=== PATIENT | female | born 1975 | race Caucasian/White ===

== ENCOUNTER 2016-07-23 14:41 | Emergency (ER) | payer OTHER ==
[2016-07-23] MEDS ORDERED: Pantoprazole 40 MG VIAL ONE (15:09)
[2016-07-23] MEDS ORDERED: Sodium Chloride 0.9% 1,000 ML ONE (15:09)
--- NOTE | 2016-07-23 15:18 | RAD ---
PORTABLE AP CHEST: Date: 07-23-16 History: Chest pain. Comparison: 04-11-15 FINDINGS: Cardiac silhouette and pulmonary vasculature are within normal limits. The lungs remain clear. The re has been no interval change from the prior exam. IMPRESSION: No acute cardiopulmonary process. POS: [facility]
[2016-07-23 15:40] LABS: #Basophils 0.1 thou/uL (0.0-0.2); #Eosinphils 0.3 thou/uL (0.0-0.7); #Lymphocytes 3.1 thou/uL (1.20-3.40); #Monocytes 0.8 thou/uL (0.11-0.59); #Neutrophils 8.4 thou/uL (1.40-6.50); %Basophils 1.1 % (0.0-1.0); %Eosinophils 2.3 % (0.0-10.0); %Lymphocytes 24.3 % (21.0-51.0); %Monocytes 6.5 % (0.0-10.0); Hematocrit 38.5 % (36.0-47.0); Red Blood Cell (RBC) Count 4.15 mill/uL (4.20-5.40); White Blood Cell (WBC) Count 12.7 thou/uL (4.8-10.8)
[2016-07-23 15:42] LABS: Bilirubin Negative (Negative); Blood, Urine Negative (Negative); Glucose, Urine (Dipstick) Negative (Negative); Ketone, Urine Negative (Negative); Nitrite Negative (Negative); Protein, Urine (Dipstick) Negative (Neg-Trace); Urobilinogen 0.2 mg/dL (0.2-1.0)
[2016-07-23 15:56] LABS: Troponin I Less than 0.010 ng/mL (< 0.028)
[2016-07-23 15:57] LABS: ALT (SGPT) 70 U/L (0-55); AST (SGOT) 149 U/L (5-34); Alkaline Phosphatase 125 U/L (40-150); Anion Gap 12 mmol/L (10-20); BUN (Urea Nitrogen) 11 mg/dL (7.0-18.7); Bilirubin, Total 0.5 mg/dL (0.2-1.2); Calc. Creatinine Clearance 0 mL/min (70-130); Calcium 8.8 mg/dL (7.8-10.44); Carbon Dioxide 26 mmol/L (22-29); Chloride 106 mmol/L (98-107); Estimated GFR-MDRD 79; Globulin 2.9 g/dL (2.4-3.5); Lipase 23 U/L (8-78); Magnesium 2.1 mg/dL (1.6-2.6); Protein, Total 6.7 g/dL (6.0-8.3)
[2016-07-23] MEDS ORDERED: Lidocaine Viscous Sol 2% 15 ml UD Cup ONE (17:08)
[2016-07-23] MEDS ORDERED: Mag-Al Plus 1200 MG/1200 MG/120 MG/30 ML UDCUP ONE (17:08)
[2016-07-23] MEDS ORDERED: Ondansetron HCl/PF 4 MG/2 ML Vial ONE (17:08)
[2016-07-23 17:33] LABS: Troponin I Less than 0.010 ng/mL (< 0.028)
[2016-07-23] MEDS ORDERED: Nitroglycerin 0.4 MG TAB (25 Tab Bottle) ONE (17:39)
[2016-07-23] MEDS ORDERED: HYDROcodone/Acetaminophen 10/325 mg Tablet ONE (18:32)
--- NOTE | 2016-07-23 18:52 | ERRECORD ---
[facility] EMERGENCY RECORD HPI CHEST PAIN (15:06 AGRE) CHIEF COMPLAINT: Patient presents for evaluation of chest pain, ongoing. HISTORIAN: History provided by patient, PAINS IN THE UPPER ABDOMEN AND LOWER CHEST ONSET ABOUT 1 HR AGO. THE PAINS COME AND GO AND FEEL LIKE A SQUEEZING THAT WILL LAST FOR 2 - 3 MINUTES AND RESOLVE. HAS BEEN HAVING THIS PROBLEM SINCE HER CHOLECYSTECTOMY LAST MAR 2016. GETS THESE PAINS FREQUENTLY SINCE THEN BUT THIS IS ONLY THE SECOND SEVERE EPISODE OF IT. IT SOMETIMES RADIATES TO HER BACK AND RIGHT SHOULDER. NO COUGHING, SOB, FEVER, CHILLS, OR VOMITING. HAS ASSOCIATED NAUSEA. 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 HAS BEEN TOLD BY HER PCP THAT IT IS ESOPHAGEAL SPASMS. GETS CRAMPS IN HER LEGS FROM TIME TO TIME WELL.. HAS CONTINUED TO HAVE DISCOMFORT IN RUQ SINCE REMOVAL OF THE GALLBLADDER. LOCATION: Symptoms are localized, most severe in epigastric area, Pain radiates, to the back, Radiation to the shoulder. QUALITY: Pain is dull in nature, described as cramping. SEVERITY: Maximum severity of symptoms severe, Currently there are no symptoms. TIME COURSE: Gradual onset of symptoms, Symptoms have resolved. ASSOCIATED WITH: No associated palpitations, No associated shortness of breath, No associated trauma, No associated upper respiratory infection, Denies any other complaints. EXACERBATED BY: Patient's condition exacerbated by nothing. RELIEVED BY: Patient's condition relieved by nothing. RISK FACTORS: Coronary artery disease risk factors, no known coronary artery disease, no diabetes, no high cholesterol, no hypertension, include smoking. WELLS CRITERIA FOR PE: No clinical signs and symptoms of a DVT (0), Patient does not have, or is likely to not have, a primary diagnosis of PE (0), Patient's heart rate is less than 100 (0), Patient has no history of immobilization within 3 days, nor any surgical history within the past 4 weeks (0), Patient has not had an objectively diagnosed PE or DVT previously (0), Patient does not have hemoptysis (0), Patient has not had treatment for malignancy within the last 6 months, nor palliative (0). ROS (15:12 AGRE) CONSTITUTIONAL: Historian denies chills, denies fever, denies weakness. EYES: Historian denies eye redness, denies vision changes. ENT: Historian denies sore throat, denies stridor. CARDIOVASCULAR: Historian reports chest pain, substernal, in the epigastric area, Historian denies diaphoresis. RESPIRATORY: Historian denies cough, denies shortness of breath. GI: Historian reports abdominal pain, reports &a-1R&a+25V*p+0X*i0081H*c202B*c15G*c2P*p-0X&a-25V&a+1R Name: Madhavi Willams : 1975 F41 MedRec: [id number] AcctNum: [id number] Prepared: FriJul 23, 2016 18:49 by Interface Page 1 of 4 pMD [facility] EMERGENCY RECORD nausea, denies vomiting. MUSCULOSKELETAL: Historian denies back pain, denies neck pain. SKIN: Historian denies skin changes, denies skin lesions. NEUROLOGIC: Historian denies confusion, denies dizziness, denies focal weakness, denies headache. HEMO/LYMPHATIC: Normal hematologic/lymphatic system review, Historian denies petechiae. PSYCHIATRIC: Negative psychiatric review of systems, Historian denies anxiety. PAST MEDICAL HISTORY (14:57 EPIE) MEDICAL HISTORY: Flu vaccine up to date, Tetanus immunization up to date, Past medical history includes genitourinary history, urinary tract infection, Past medical history includes neurological disease, migraine headaches. GERD. IBS. FEMALE SURGICAL HISTORY: Surgical history of cholecystectomy, laparoscopic, Surgical history of gastric bypass, Date of surgery 05/19, Surgical history of hysterectomy, Date of surgery 08/2009. PSYCHIATRIC HISTORY: Psychiatric history includes, depression, no previous inpatient psychiatric admissions, no previous emergency department psychiatric evaluations, Psychiatric history includes patient currently being under outpatient treatment. Psychiatric history includes, anxiety, Notes: ADD,. SOCIAL HISTORY: Patient is a former tobacco user, smoked cigarettes, Patient quit smoking less than 10 years ago, Tobacco history notes: Currently uses e-cigarette, Patient denies alcohol use, Patient denies drug use. KNOWN ALLERGIES morphine CURRENT MEDICATIONS No recorded medications VITAL SIGNS VITAL SIGNS: BP: 120/89, Pulse: 86, Resp: 20, O2 sat: 98 on Room Air, Time: 07/23/2016 14:52. (14:52 EPIE) BP: 115/78, Pulse: 90, Resp: 20 (Non-Labored), Temp: 98.7 (Oral), Pain: 5, O2 sat: 100 on Room Air, Time: 07/23/2016 15:30. (15:30 EPIE) BP: 111/68, Pulse: 92, Resp: 20 (Non-Labored), O2 sat: 100 on Room Air, Time: 07/23/2016 16:30. (16:30 EPIE) BP: 118/68, Pulse: 95, Resp: 22, Pain: 8, O2 sat: 100 on Room Air, Time: 07/23/2016 17:30. (17:30 EPIE) BP: 116/75, Pulse: 94, Resp: 22, O2 sat: 100 on Room Air, Time: 07/23/2016 17:40. (17:40 EPIE) BP: 90/58, Pulse: 93, Resp: 22, O2 sat: 100 on Room Air, Time: 07/23/2016 18:00. (18:00 EPIE) BP: 102/65, Pulse: 96, Resp: 20, O2 sat: 95 on Room Air, Time: 07/23/2016 18:30. (18:30 EPIE) &a-1R&a+25V*p+0X*q1170S*c202B*c15G*c2P*p-0X&a-25V&a+1R Name: Madhavi Willams : 1975 F41 MedRec: [id number] AcctNum: [id number] Prepared: FriJul 23, 2016 18:49 by Interface Page 2 of 4 pMD [facility] EMERGENCY RECORD Temp: 98.6 (Oral), Time: 07/23/2016 18:46. (18:46 EPIE) PHYSICAL EXAM (15:13 AGRE) CONSTITUTIONAL: Vital Signs Reviewed, Patient afebrile, Patient appears non toxic, Patient appears pain free, Patient alert and oriented to person, place and time, Nursing notes reviewed. HEAD: Head exam included findings of head atraumatic, normocephalic. EYES: Eye exam included findings of eyelids normal to inspection, Extraocular muscles intact, Conjunctiva normal, Sclera normal. ENT: Ear exam normal, Nose exam normal, Mouth exam normal. NECK: Neck exam normal, Neck exam included findings of normal range of motion, no meningeal signs. RESPIRATORY CHEST: Respiratory and chest exam normal, Respiratory exam included findings of no respiratory distress, Breath sounds clear, No wheezing, No rales, No rhonchi, Breath sounds not diminished. CARDIOVASCULAR: Cardiovascular assessment normal, Cardiovascular exam included findings of heart rate regular rate and rhythm, Heart sounds normal, normal S1, normal S2, no murmurs, no rub, no gallop. ABDOMEN FEMALE: Abdominal exam included findings of abdomen tender, to the epigastric region, to the right upper quadrant, Bowel sounds normal, Liver normal, Spleen normal, no distension, no mass, no pulsatile masses, no peritoneal signs, no rigidity, no guarding, no rebound, no ventral hernia. BACK: Back exam included findings of normal inspection, range of motion normal. UPPER EXTREMITY: Upper extremity exam included findings of inspection normal, Range of motion normal. LOWER EXTREMITY: Lower extremity exam included findings of inspection normal, Range of motion normal. NEURO: Neuro exam normal, Neuro exam findings include patient oriented to person, place and time, Speech normal, Memory normal, Cranial nerves intact, no focal motor deficits. SKIN: Skin exam included findings of skin warm, dry, and normal in color. PSYCHIATRIC: Psychiatric exam normal, Normal affect. EKG INTERPRETATION (15:04 AGRE) 12 LEAD EKG INTERPRETATION: 12 lead EKG interpreted by Emergency Department Physician at time of study, 12 lead EKG shows normal sinus rhythm, Rate (beats per minute): 85, with no ectopics, Conduction normal, ST segments normal, T waves normal, [place] normal, Clinical impression: Normal EKG. MEDICATION ADMINISTRATION SUMMARY Drug Name: ondansetron, Dose Ordered: 4 mg, Route: Sublingual, Status: Canceled, Time: 17:17 07/23/2016, Drug Name: Hermon, Dose Ordered: 10 mg, Route: Oral, Status: Given, &a-1R&a+25V*p+0X*[id number]*c202B*c15G*c2P*p-0X&a-25V&a+1R Name: Madhavi Willams Juan : 1975 F41 MedRec: [id number] AcctNum: [id number] Prepared: Imelda Jul 23, 2016 18:49 by Interface Page 3 of 4 pMD [facility] EMERGENCY RECORD Time: 18:35 07/23/2016, Drug Name: nitroglycerin sublingual, Dose Ordered: 0.4 mg, Route: Sublingual, Status: Given, Time: 17:45 07/23/2016, Drug Name: GI COCKTAIL- GREEN, Dose Ordered: 40 mL, Route: Oral, Status: Given, Time: 17:17 07/23/2016, Drug Name: *Zofran intravenous, Dose Ordered: 4 mg, Route: IV Push, Status: Given, Time: 17:15 07/23/2016, Drug Name: sodium chloride 0.9 % intravenous, Dose Ordered: 1 L, Route: IV Fluid Infusion, Status: Given, Time: 15:20 07/23/2016, Drug Name: Protonix intravenous, Dose Ordered: 40 mg, Route: IV Push, Status: Given, Time: 15:20 07/23/2016, *Additional information available in notes, Detailed record available in Medication Service section. PROBLEM LIST No recorded problems DIAGNOSIS (18:34 AGRE) FINAL: PRIMARY: ESOPHAGEAL SPASM. PRESCRIPTION (18:34 AGRE) acetaminophen-codeine: TABLET : 300 mg-60 mg : ORAL : Quantity: 1 Unit: tab(s) Route: ORAL Schedule: every 6 hours PRN Dispense: 12 Unit: tab(s) May substitute. Refills: No Refills POTENTIAL ALLERGY REACTION: 'morphine [morphine/morphine sulfate]'. NOTES: prn severe pain No Refills. DISPOSITION PATIENT: Disposition Type: Discharge, Disposition: *Discharge Home, Condition: Improved. (18:34 AGRE) Patient left the department. (18:47 EPIE) Dai: AGRE=MD Waylon, Mathew EPIE=[place] RN, Dinora &a-1R&a+25V*p+0X*m4125G*c202B*c15G*c2P*p-0X&a-25V&a+1R Name: Екатерина Madhavi C : 1975 F41 MedRec: [id number] AcctNum: [id number] Prepared: FriJul 23, 2016 18:49 by Interface Page 4 of 4 pMD [facility]
--- NOTE | 2016-07-23 18:58 | PICIS ---
[facility] EMERGENCY RECORD TRIAGE (FriJul 23, 2016 14:49 EPIE) TRIAGE NOTES: Pt reports chest pain starting today along with nausea. Reports she has hx of espophageal spasms. Pt also reports leg cramps. (FriJul 23, 2016 14:49 EPIE) PATIENT: NAME: Madhavi Willams, AGE: 41, GENDER: female, : Sun 1975, TIME OF GREET: FriJul 23, 2016 14:41, PREFERRED LANGUAGE: Ghanaian, ETHNICITY: Not or , ECODE BILLING MAP: [facility], SSN: [id number], Zip Code: [address], KG WEIGHT: 90.72, PHONE: , , , PERSON ID: [id number], PCP: [place]. (FriJul 23, 2016 14:49 EPIE) COMPLAINT: HIGH RISK COMPLAINT: CHEST PAIN. (FriJul 23, 2016 14:49 EPIE) ADMISSION: URGENCY: 2 Emergent, ADMISSION SOURCE: Home, TRANSPORT: CAR, BED: TRIAGE. (FriJul 23, 2016 14:49 EPIE) TRIAGE SCREENING: Patient denies suicidal ideation, Patient denies presence of domestic violence. (14:57 EPIE) TREATMENTS IN PROGRESS: Treatments given Prehospital: none. (14:57 EPIE) PROVIDERS: TRIAGE NURSE: Dinora Perry RN. (FriJul 23, 2016 14:49 EPIE) KNOWN ALLERGIES morphine CURRENT MEDICATIONS No recorded medications VITAL SIGNS VITAL SIGNS: BP: 120/89, Pulse: 86, Resp: 20, O2 sat: 98 on Room Air, Time: 07/23/2016 14:52. (14:52 EPIE) BP: 115/78, Pulse: 90, Resp: 20 (Non-Labored), Temp: 98.7 (Oral), Pain: 5, O2 sat: 100 on Room Air, Time: 07/23/2016 15:30. (15:30 EPIE) BP: 111/68, Pulse: 92, Resp: 20 (Non-Labored), O2 sat: 100 on Room Air, Time: 07/23/2016 16:30. (16:30 EPIE) BP: 118/68, Pulse: 95, Resp: 22, Pain: 8, O2 sat: 100 on Room Air, Time: 07/23/2016 17:30. (17:30 EPIE) BP: 116/75, Pulse: 94, Resp: 22, O2 sat: 100 on Room Air, Time: 07/23/2016 17:40. (17:40 EPIE) BP: 90/58, Pulse: 93, Resp: 22, O2 sat: 100 on Room Air, Time: 07/23/2016 18:00. (18:00 EPIE) BP: 102/65, Pulse: 96, Resp: 20, O2 sat: 95 on Room Air, Time: 07/23/2016 18:30. (18:30 EPIE) Temp: 98.6 (Oral), Time: 07/23/2016 18:46. (18:46 EPIE) NURSING ASSESSMENT: CARDIOVASCULAR (15:30 EPIE) CONSTITUTIONAL: Patient arrives ambulatory, Gait steady, History obtained from patient, Patient appears comfortable, Patient cooperative, Patient alert, Oriented to person, place and time, Skin warm, Skin dry, Skin normal in color, Mucous membranes pink, Mucous &a-1R&a+25V*p+0X*w7872K*c202B*c15G*c2P*p-0X&a-25V&a+1R Name: Madhavi Willams : 1975 F41 MedRec: [id number] AcctNum: [id number] Prepared: FriJul 23, 2016 18:56 by Interface Page 1 of 11 pMD [facility] EMERGENCY RECORD membranes moist, Patient is well-groomed, Pt reports chest pain starting today along with nausea. Reports she has hx of espophageal spasms. Pt also reports leg cramps. PAIN: to the epigastric region, Onset of pain 07/23/2016, on a scale 0-10 patient rates pain as 8, "twisting pain". CARDIOVASCULAR: Cardiovascular assessment findings include heart rate normal, Heart sounds normal, S1, S2, No associated diaphoresis, no associated dyspnea, no associated palpitations, no associated weakness. RESPIRATORY/CHEST: Breath sounds clear, Respiratory assessment findings include respiratory effort easy, Respirations regular, Conversing normally, Neck and chest exam findings include trachea midline, Chest expansion equal, Chest movement symmetrical. NURSING PROCEDURE: VACATION SALES ADVISOR (14:53 EPIE) PATIENT IDENTIFIER: Patient actively involved in identification process, Patient's identity verified by patient stating name, Patient's identity verified by hospital ID miranda. VACATION SALES ADVISOR: Patient placed on monitoring analyst, Patient placed on non-invasive blood pressure monitor, with disposable blood pressure cuff applied, Patient placed on continuous pulse oximetry, Adult/pediatric oxisensor applied. FOLLOW-UP: After procedure, alarms set and on, After procedure, patient tolerating monitoring. NURSING PROCEDURE: DISCHARGE NOTE (18:46 EPIE) DISCHARGE: Patient discharged to home, ambulating without assistance, family driving, accompanied by //partner, Summary of Care printed/ provided, Discharge instructions given to patient, Simple or moderate discharge teaching performed, Prescriptions given and instructions on side effects given, Name of prescription(s) given: acetaminophen-codeine, Above person(s) verbalized understanding of discharge instructions and follow-up care. BELONGINGS: Belongings and valuables with patient upon arrival to the Emergency Department include:, Belongings and valuables with patient at time of discharge include:, Belongings remain with patient, Valuables remain with patient. NURSING PROCEDURE: EKG CHART (14:49 EPIE) EKG: EKG indicated for complaint of chest pain, 12 lead EKG performed on the left chest, done by Dinora MOODY, first EKG, Notes: EKG @ 1447. FOLLOW-UP: After procedure, EKG for interpretation given to Dr. Waylon CORTES. NURSING PROCEDURE: IV PATIENT IDENITIFIER: Patient actively involved in identification process, Patient's identity verified by patient stating name, &a-1R&a+25V*p+0X*r9274G*c202B*c15G*c2P*p-0X&a-25V&a+1R Name: Madhavi Willams : 1975 F41 MedRec: [id number] AcctNum: [id number] Prepared: FriJul 23, 2016 18:56 by Interface Page 2 of 11 Health system EMERGENCY RECORD Patient's identity verified by patient stating date, Patient's identity verified by hospital ID bracelet, Patient's identity verified by family member. (15:20 JPAR) IV SITE 1: IV therapy indicated for hydration, IV therapy indicated for medication administration, IV established, to the left antecubital, using a 20 gauge catheter, in one attempt, IV site prepped with clorohexaphine, Saline lock established, Flushed with normal saline (mls): 10, Labs drawn at time of placement, labeled in the presence of the patient and sent to lab. (15:20 JPAR) NOTES: Notes: IV DC with catheter intact. Pressure and dressing applied. (18:46 EPIE) SAFETY: Side rails up, Cart/Stretcher in lowest position, Family at bedside, Call light within reach, Hospital ID band on. (15:20 JPAR) NURSING PROCEDURE: NURSE NOTES NURSES NOTES: Notes: Patient resting with RR even and unlabored. No new complaints at this time. Pt reports pain has decreased to a 5/10. IV fluids infusing. Awaiting lab results Warm blanket given for comfort. (15:37 EPIE) Notes: Patient resting with family RR even and unlabored. No new complaints at this time. Pt given juice per request and approval of ERMD. (16:20 EPIE) Notes: Patient resting with family at bedside. RR even and unlabored. No new complaints at this time. Pt reports pain/spams worsening in chest. ERMD made aware and ordered nitro. ERMD states nitro also can help with spasms. (17:46 EPIE) NURSING PROCEDURE: URINE COLLECTION (15:15 JPAR) PATIENT IDENTIFIER: Patient actively involved in identification process, Patient's identity verified by patient stating name, Patient's identity verified by patient stating date, Patient's identity verified by hospital ID bracelet, Patient's identity verified by family member. URINE COLLECTION FEMALE: Urine collection indicated to monitor output, Urine collected by void, output amount (mL) 100, urine clear in color, and clear, Specimen labeled in the presence of the patient and sent to lab. SAFETY: Side rails up, Cart/Stretcher in lowest position, Call light within reach, Hospital ID band on. ORDER DETAILS Order Name: B type Natriuretic Peptide, Status: Active, Time: 15:03 07/23/2016, User: INA, - Ordered for: MD Connors Andrea, - Entered by: MD Connors Andrea - Tue Jul 23, 2016 15:03, - Quantity: 1, Order Name: VACATION SALES ADVISOR ED, Status: Done, Time: 15:05 07/23/2016, User: EPIE, &a-1R&a+25V*p+0X*t0610A*c202B*c15G*c2P*p-0X&a-25V&a+1R Name: Madhavi Willams : 1975 F41 MedRec: [id number] AcctNum: [id number] Prepared: FriJul 23, 2016 18:56 by Interface Page 3 of 11 D [facility] EMERGENCY RECORD - Ordered for: MD Connors Andrea, - Entered by: MD Connors Andrea - leandro Jul 23, 2016 15:03, - Quantity: 1, Order Name: Cardiac Profile w/CKMB & Troponin - I, Status: Active, Time: 15:03 07/23/2016, User: INA, - Ordered for: MD Connors Andrea, - Entered by: MD Connors Andrea - leandro Jul 23, 2016 15:03, - Quantity: 1, Order Name: CBC with Differential, Status: Active, Time: 15:03 07/23/2016, User: INA, - Ordered for: MD Connors Andrea, - Entered by: MD Connors Andrea - leandro Jul 23, 2016 15:03, - Quantity: 1, Order Name: Comprehensive Metabolic Panel, Status: Active, Time: 15:03 07/23/2016, User: INA, - Ordered for: MD Connors Andrea, - Entered by: MD Connors Andrea - leandro Jul 23, 2016 15:03, - Quantity: 1, Order Name: D-Dimer (Quantitative), Status: Active, Time: 15:03 07/23/2016, User: INA, - Ordered for: MD Connors Andrea, - Entered by: MD Connors Andrea - leandro Jul 23, 2016 15:03, - Quantity: 1, Order Name: EKG 12 Lead in Emergency Room, Status: Active, Time: 15:03 07/23/2016, User: INA, - Ordered for: MD Connors Andrea, - Entered by: MD Connors Andrea - leandro Jul 23, 2016 15:03, - Quantity: 1, Order Name: Lipase, Status: Active, Time: 15:03 07/23/2016, User: INA, - Ordered for: MD Connors Andrea, - Entered by: MD Connors Andrea - leandro Jul 23, 2016 15:03, - Quantity: 1, Order Name: Magnesium, Status: Active, Time: 15:03 07/23/2016, User: INA, - Ordered for: MD Connors Andrea, - Entered by: MD Connors Andrea - Tue Jul 23, 2016 15:03, - Quantity: 1, Order Name: SALINE LOCK, Status: Done, Time: 15:26 07/23/2016, User: MURALI, - Ordered for: MD Connors Andrea, - Entered by: MD Connors Andrea - leandro Jul 23, 2016 15:03, - Quantity: 1, Order Name: Troponin - I, Status: Active, Time: 16:50 07/23/2016, User: INA, - Ordered for: MD Connors Andrea, - Entered by: MD Connors Andrea - leandro Jul 23, 2016 16:50, - Quantity: 1, Order Name: Urinalysis w/ Rflx Microscopic, Status: Active, Time: 15:03 07/23/2016, User: INA, - Ordered for: MD Connors Andrea, &a-1R&a+25V*p+0X*o3407U*c202B*c15G*c2P*p-0X&a-25V&a+1R Name: Madhavi Willams : 1975 F41 MedRec: [id number] AcctNum: [id number] Prepared: FriJul 23, 2016 18:56 by Interface Page 4 of 11 Health system EMERGENCY RECORD - Entered by: MD Connors Andrea - Tue Jul 23, 2016 15:03, - Quantity: 1, Order Name: XR Chest 1 View Portable, Status: Active, Time: 15:03 07/23/2016, User: INA, - Ordered for: MD Connors Andrea, - Entered by: MD Connors Andrea - Tue Jul 23, 2016 15:03, - Quantity: 1. MEDICATION ADMINISTRATION SUMMARY Drug Name: ondansetron, Dose Ordered: 4 mg, Route: Sublingual, Status: Canceled, Time: 17:17 07/23/2016, Drug Name: Charleston, Dose Ordered: 10 mg, Route: Oral, Status: Given, Time: 18:35 07/23/2016, Drug Name: nitroglycerin sublingual, Dose Ordered: 0.4 mg, Route: Sublingual, Status: Given, Time: 17:45 07/23/2016, Drug Name: GI COCKTAIL- GREEN, Dose Ordered: 40 mL, Route: Oral, Status: Given, Time: 17:17 07/23/2016, Drug Name: *Zofran intravenous, Dose Ordered: 4 mg, Route: IV Push, Status: Given, Time: 17:15 07/23/2016, Drug Name: sodium chloride 0.9 % intravenous, Dose Ordered: 1 L, Route: IV Fluid Infusion, Status: Given, Time: 15:20 07/23/2016, Drug Name: Protonix intravenous, Dose Ordered: 40 mg, Route: IV Push, Status: Given, Time: 15:20 07/23/2016, *Additional information available in notes, Detailed record available in Medication Service section. MEDICATION SERVICE YUNG MARC GREEN: Order: GI COCKTAIL- GREEN - Dose: 40 mL : Oral (phenobarbital/hyoscyamine sulfate/atropine sulfate/scopolamine hydrobromide) [10 mL] Lidocaine Viscous (lidocaine HCl) [10 mL] MAG-AL (magnesium hydroxide/aluminum hydroxide) [20 mL] Ordered by: Mathew Connors MD Entered by: Mathew Connors MD FriJul 23, 2016 17:04 Documented as given by: Dinora Perry RN FriJul 23, 2016 17:17 Patient, Medication, Dose, Route and Time verified prior to administration. Amount given: 40ML, Site: Medication administered P.O., Correct patient, time, route, dose and medication confirmed prior to administration, Patient advised of actions and side-effects prior to administration, Allergies confirmed and medications reviewed prior to administration. nitroglycerin sublingual: Order: nitroglycerin sublingual (nitroglycerin) - Dose: 0.4 mg : Sublingual Ordered by: Mathew Connors MD Entered by: Mathew Connors MD FriJul 23, 2016 17:43 Documented as given by: Dinora Perry RN FriJul 23, 2016 17:45 Patient, Medication, Dose, Route and Time verified prior to &a-1R&a+25V*p+0X*w7168J*c202B*c15G*c2P*p-0X&a-25V&a+1R Name: Madhavi Willams : 1975 F41 MedRec: [id number] AcctNum: [id number] Prepared: FriJul 23, 2016 18:56 by Interface Page 5 of 11 D [facility] EMERGENCY RECORD administration. Amount given: 0.4MG, Site: Medication administered S.L., Correct patient, time, route, dose and medication confirmed prior to administration, Patient advised of actions and side-effects prior to administration, Allergies confirmed and medications reviewed prior to administration. Charleston: Order: Charleston (hydrocodone bitartrate/acetaminophen) - Dose: 10 mg : Oral POTENTIAL ALLERGY REACTION: 'morphine [morphine/morphine sulfate]' - Reviewed with patient, SAYS CAN TAKE THIS MED Ordered by: Mathew Connors MD Entered by: Mathew Connors MD FriJul 23, 2016 18:32 , Acknowledged by: Dinora Perry RN FriJul 23, 2016 18:33 Documented as given by: Dinora Perry RN FriJul 23, 2016 18:35 Patient, Medication, Dose, Route and Time verified prior to administration. Amount given: 10-325mg, Site: Medication administered P.O., Patient appears Awake and alert- acceptable, Correct patient, time, route, dose and medication confirmed prior to administration, Patient advised of actions and side-effects prior to administration, Allergies confirmed and medications reviewed prior to administration. Protonix intravenous: Order: Protonix intravenous (pantoprazole sodium) - Dose: 40 mg : IV Push Ordered by: Mathew Connors MD Entered by: Mathew Connors MD FriJul 23, 2016 15:03 , Acknowledged by: Dalton Connell RN FriJul 23, 2016 15:08 Documented as given by: Dalton Connell RN FriJul 23, 2016 15:20 Patient, Medication, Dose, Route and Time verified prior to administration. IV SITE #1 IV fluids established for hydration, IV SITE #1 into left antecubital, IV SITE #1 1st bag hung, amount 1 Liter hung, IV SITE #1 bolus of 1000 ml established, via primary tubing, Awake and alert- acceptable, Connections checked prior to administration, Line traced prior to administration, Catheter placement confirmed via flush prior to administration, IV site without signs or symptoms of infiltration during medication administration, No swelling during administration, No drainage during administration, IV flushed after administration, Correct patient, time, route, dose and medication confirmed prior to administration, Patient advised of actions and side-effects prior to administration, Allergies confirmed and medications reviewed prior to administration, Patient in position of comfort, Side rails up, Cart in lowest position, Family at bedside, Call light in reach. sodium chloride 0.9 % intravenous: Order: sodium chloride 0.9 % intravenous (0.9 % sodium chloride) - Dose: 1 L : IV Fluid Infusion Ordered by: Mathew Connors MD Entered by: Mathew Connors MD FriJul 23, 2016 15:03 , Acknowledged by: Dalton Connell RN FriJul 23, 2016 15:08 Documented as given by: Dalton Connell RN FriJul 23, 2016 15:20 Patient, Medication, Dose, Route and Time verified prior to &a-1R&a+25V*p+0X*l9950Y*c202B*c15G*c2P*p-0X&a-25V&a+1R Name: Madhavi Willams : 1975 F41 MedRec: [id number] AcctNum: [id number] Prepared: FriJul 23, 2016 18:56 by Interface Page 6 of 11 pMD [facility] EMERGENCY RECORD administration. IV SITE #1 IV fluids established for hydration, IV SITE #1 into left antecubital, IV SITE #1 1st bag hung, amount 1 Liter hung, IV SITE #1 bolus of 1000 ml established, via primary tubing, Awake and alert- acceptable, Catheter placement confirmed via flush prior to administration, IV site without signs or symptoms of infiltration during medication administration, No swelling during administration, No drainage during administration, IV flushed after administration, Correct patient, time, route, dose and medication confirmed prior to administration, Patient advised of actions and side-effects prior to administration, Allergies confirmed and medications reviewed prior to administration, Patient in position of comfort, Side rails up, Cart in lowest position, Family at bedside, Call light in reach. : Follow Up : Response assessment performed, No signs or symptoms of allergic reaction noted, _IV SITE #1:_, IV fluid infusion discontinued, on FriJul 23, 2016 16:20, Total fluid hydration time IV site 1 1 hour, ., Total amount infused: 1L, IV Line flushed after administration. (16:19 EPIE) Zofran intravenous: Order: Zofran intravenous (ondansetron HCl) - Dose: 4 mg : IV Push Schedule: Now Notes: Verbal Order Ordered by: Mathew Connors MD Entered by: Dinora Perry RN FriJul 23, 2016 17:18 Documented as given by: Dinora Perry RN FriJul 23, 2016 17:15 Patient, Medication, Dose, Route and Time verified prior to administration. Amount given: 4MG, IV SITE #1 IVP, initial medication, Slowly, Catheter placement confirmed via flush prior to administration, IV site without signs or symptoms of infiltration during medication administration, No swelling during administration, No drainage during administration, IV flushed after administration, Correct patient, time, route, dose and medication confirmed prior to administration, Patient advised of actions and side-effects prior to administration, Allergies confirmed and medications reviewed prior to administration. (CANCELED) ondansetron: Order: ondansetron - Dose: 4 mg : Sublingual Ordered by: Mathew Connors MD Entered by: Mathew Connors MD FriJul 23, 2016 17:04 Canceled by: Dinora Perry RN. FriJul 23, 2016 17:17 Cancel reason: Change in medication plan. HPI CHEST PAIN (15:06 AGRE) CHIEF COMPLAINT: Patient presents for evaluation of chest pain, ongoing. HISTORIAN: History provided by patient, PAINS IN THE UPPER ABDOMEN AND LOWER CHEST ONSET ABOUT 1 HR AGO. THE PAINS COME AND GO AND FEEL LIKE A SQUEEZING THAT WILL LAST FOR 2 - 3 MINUTES AND RESOLVE. HAS BEEN HAVING THIS PROBLEM SINCE HER CHOLECYSTECTOMY LAST MAR 2016. GETS THESE PAINS FREQUENTLY SINCE THEN BUT THIS IS ONLY THE &a-1R&a+25V*p+0X*v2307I*c202B*c15G*c2P*p-0X&a-25V&a+1R Name: Madhavi Willams : 1975 F41 MedRec: [id number] AcctNum: [id number] Prepared: FriJul 23, 2016 18:56 by Interface Page 7 of 11 pMD [facility] EMERGENCY RECORD SECOND SEVERE EPISODE OF IT. IT SOMETIMES RADIATES TO HER BACK AND RIGHT SHOULDER. NO COUGHING, SOB, FEVER, CHILLS, OR VOMITING. HAS ASSOCIATED NAUSEA. 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 HAS BEEN TOLD BY HER PCP THAT IT IS ESOPHAGEAL SPASMS. GETS CRAMPS IN HER LEGS FROM TIME TO TIME WELL.. HAS CONTINUED TO HAVE DISCOMFORT IN RUQ SINCE REMOVAL OF THE GALLBLADDER. LOCATION: Symptoms are localized, most severe in epigastric area, Pain radiates, to the back, Radiation to the shoulder. QUALITY: Pain is dull in nature, described as cramping. SEVERITY: Maximum severity of symptoms severe, Currently there are no symptoms. TIME COURSE: Gradual onset of symptoms, Symptoms have resolved. ASSOCIATED WITH: No associated palpitations, No associated shortness of breath, No associated trauma, No associated upper respiratory infection, Denies any other complaints. EXACERBATED BY: Patient's condition exacerbated by nothing. RELIEVED BY: Patient's condition relieved by nothing. RISK FACTORS: Coronary artery disease risk factors, no known coronary artery disease, no diabetes, no high cholesterol, no hypertension, include smoking. WELLS CRITERIA FOR PE: No clinical signs and symptoms of a DVT (0), Patient does not have, or is likely to not have, a primary diagnosis of PE (0), Patient's heart rate is less than 100 (0), Patient has no history of immobilization within 3 days, nor any surgical history within the past 4 weeks (0), Patient has not had an objectively diagnosed PE or DVT previously (0), Patient does not have hemoptysis (0), Patient has not had treatment for malignancy within the last 6 months, nor palliative (0). ROS (15:12 AGRE) CONSTITUTIONAL: Historian denies chills, denies fever, denies weakness. EYES: Historian denies eye redness, denies vision changes. ENT: Historian denies sore throat, denies stridor. CARDIOVASCULAR: Historian reports chest pain, substernal, in the epigastric area, Historian denies diaphoresis. RESPIRATORY: Historian denies cough, denies shortness of breath. GI: Historian reports abdominal pain, reports nausea, denies vomiting. MUSCULOSKELETAL: Historian denies back pain, denies neck pain. SKIN: Historian denies skin changes, denies skin lesions. NEUROLOGIC: Historian denies confusion, denies dizziness, denies focal weakness, denies headache. HEMO/LYMPHATIC: Normal hematologic/lymphatic system review, Historian denies petechiae. PSYCHIATRIC: Negative psychiatric review of systems, Historian &a-1R&a+25V*p+0X*o8898M*c202B*c15G*c2P*p-0X&a-25V&a+1R Name: Madhavi Willams : 1975 F41 MedRec: [id number] AcctNum: [id number] Prepared: JuarezJul 23, 2016 18:56 by Interface Page 8 of 11 pMD [facility] EMERGENCY RECORD denies anxiety. PAST MEDICAL HISTORY (14:57 EPIE) MEDICAL HISTORY: Flu vaccine up to date, Tetanus immunization up to date, Past medical history includes genitourinary history, urinary tract infection, Past medical history includes neurological disease, migraine headaches. GERD. IBS. FEMALE SURGICAL HISTORY: Surgical history of cholecystectomy, laparoscopic, Surgical history of gastric bypass, Date of surgery 05/19, Surgical history of hysterectomy, Date of surgery 08/2009. PSYCHIATRIC HISTORY: Psychiatric history includes, depression, no previous inpatient psychiatric admissions, no previous emergency department psychiatric evaluations, Psychiatric history includes patient currently being under outpatient treatment. Psychiatric history includes, anxiety, Notes: ADD,. SOCIAL HISTORY: Patient is a former tobacco user, smoked cigarettes, Patient quit smoking less than 10 years ago, Tobacco history notes: Currently uses e-cigarette, Patient denies alcohol use, Patient denies drug use. PHYSICAL EXAM (15:13 AGRE) CONSTITUTIONAL: Vital Signs Reviewed, Patient afebrile, Patient appears non toxic, Patient appears pain free, Patient alert and oriented to person, place and time, Nursing notes reviewed. HEAD: Head exam included findings of head atraumatic, normocephalic. EYES: Eye exam included findings of eyelids normal to inspection, Extraocular muscles intact, Conjunctiva normal, Sclera normal. ENT: Ear exam normal, Nose exam normal, Mouth exam normal. NECK: Neck exam normal, Neck exam included findings of normal range of motion, no meningeal signs. RESPIRATORY CHEST: Respiratory and chest exam normal, Respiratory exam included findings of no respiratory distress, Breath sounds clear, No wheezing, No rales, No rhonchi, Breath sounds not diminished. CARDIOVASCULAR: Cardiovascular assessment normal, Cardiovascular exam included findings of heart rate regular rate and rhythm, Heart sounds normal, normal S1, normal S2, no murmurs, no rub, no gallop. ABDOMEN FEMALE: Abdominal exam included findings of abdomen tender, to the epigastric region, to the right upper quadrant, Bowel sounds normal, Liver normal, Spleen normal, no distension, no mass, no pulsatile masses, no peritoneal signs, no rigidity, no guarding, no rebound, no ventral hernia. BACK: Back exam included findings of normal inspection, range of motion normal. UPPER EXTREMITY: Upper extremity exam included findings of inspection normal, Range of motion normal. LOWER EXTREMITY: Lower extremity exam included findings of inspection normal, Range of motion normal. &a-1R&a+25V*p+0X*w5026O*c202B*c15G*c2P*p-0X&a-25V&a+1R Name: Madhavi Willams : 1975 F41 MedRec: [id number] AcctNum: [id number] Prepared: FriJul 23, 2016 18:56 by Interface Page 9 of 11 D [facility] EMERGENCY RECORD NEURO: Neuro exam normal, Neuro exam findings include patient oriented to person, place and time, Speech normal, Memory normal, Cranial nerves intact, no focal motor deficits. SKIN: Skin exam included findings of skin warm, dry, and normal in color. PSYCHIATRIC: Psychiatric exam normal, Normal affect. EVENTS TRANSFER: Triage to Emergency Triage. (14:49 EPIE) Emergency Triage to Emergency Room -02. (14:49 EPIE) Removed from Emergency Emergency Room -02. (18:47 EPIE) EKG INTERPRETATION (15:04 AGRE) 12 LEAD EKG INTERPRETATION: 12 lead EKG interpreted by Emergency Department Physician at time of study, 12 lead EKG shows normal sinus rhythm, Rate (beats per minute): 85, with no ectopics, Conduction normal, ST segments normal, T waves normal, [place] normal, Clinical impression: Normal EKG. O2SAT INTERPRETATION (15:14 AGRE) O2SAT: Continuous pulse oximetry, Oxygen saturation 98%, on room air, Oxygen saturation interpretation: Normal, No intervention required. PROBLEM LIST No recorded problems DIAGNOSIS (18:34 AGRE) FINAL: PRIMARY: ESOPHAGEAL SPASM. DISPOSITION PATIENT: Disposition Type: Discharge, Disposition: *Discharge Home, Condition: Improved. (18:34 AGRE) Patient left the department. (18:47 EPIE) INSTRUCTION (18:35 AGRE) DISCHARGE: ESOPHAGEAL SPASM, CHEST PAIN, NONCARDIAC. SPECIAL: FOLLOW UP WITH YOUR PRIMARY CARE PHYSICIAN TOMORROW TO ARRANGE FOR FURTHER EVALUATION AND MANAGEMENT OF YOUR SYMPTOMS. PRESCRIPTION (18:34 AGRE) acetaminophen-codeine: TABLET : 300 mg-60 mg : ORAL : Quantity: 1 Unit: tab(s) Route: ORAL Schedule: every 6 hours PRN Dispense: 12 Unit: tab(s) May substitute. Refills: No Refills POTENTIAL ALLERGY REACTION: 'morphine [morphine/morphine sulfate]'. NOTES: prn severe pain No Refills. IMAGING (18:47 EPIE) &a-1R&a+25V*p+0X*[id number]*c202B*c15G*c2P*p-0X&a-25V&a+1R Name: Madhavi Willams : 1975 2 MedRec: [id number] AcctNum: [id number] Prepared: FriJul 23, 2016 18:56 by Interface Page 10 of 11 D [facility] EMERGENCY RECORD *DISCHARGE INSTRUCTIONS RECEIPT: Image captured from scanner. *SUPPLY CHARGE SHEET: Image captured from scanner. *EKG: Image captured from scanner. Dai: AGRE=MD Waylon, Mathew LUNA=FRANSISCO Perry, Dinora CARRION=FRANSISCO Connell Jason &a-1R&a+25V*p+0X*e0022R*c202B*c15G*c2P*p-0X&a-25V&a+1R Name: Jack Willamsgreg Martinez : 1975 2 MedRec: [id number] AcctNum: [id number] Prepared: Imelda Jul 23, 2016 18:56 by Interface Page 11 of 11 pMAngella ARREDONDO
== END 2016-07-23 18:46 | disposition home or self-care (01) ==
LOC: NAV ERS 14:41
DX: K22.4 Dyskinesia of esophagus (principal); K21.9 Gastro-esophageal reflux disease without esophagitis; K58.9 Irritable bowel syndrome, unspecified; Z87.891 Personal history of nicotine dependence
CPT/HCPCS: 71010; 80053; 81003; 82553; 83690; 83735; 83880; 84484; 85025; 85379; 93005; 96361; 96374; 96375; C9113; J2405; J7050